=== PATIENT | female | born 1960 | race Caucasian/White ===

== ENCOUNTER → 2020-10-28 11:05 | Outpatient (BNVA) | payer OTHER, SELFPAY | PROVIDERS: PCP Family Medicine; Visit Provider Internal Medicine | DX: R76.8 Other specified abnormal immunological findings in serum (principal); R79.89 Other specified abnormal findings of blood chemistry; M25.50 Pain in unspecified joint; E87.6 Hypokalemia; Z79.899 Other long term (current) drug therapy; F17.210 Nicotine dependence, cigarettes, uncomplicated | CPT/HCPCS: 99204 ==

== ENCOUNTER 2020-10-28 12:00 | Outpatient (CLI) | payer OTHER, SELFPAY ==
--- NOTE | 2020-10-28 12:08 | XR_ITS ---
WS: [id number] LEFT HAND: 2 VIEW(S) TECHNIQUE: PA and lateral. HISTORY: E87.6 - Hypokalemia COMPARISON: None available. No acute fracture or dislocation. Mild diffuse interphalangeal joint space narrowing. Mild degenerative changes at the first CMC joint. XR/XR hand LT 2V 13367 IMPRESSION: Mild osteoarthritis.
--- NOTE | 2020-10-28 12:08 | XR_ITS ---
WS: [id number] Exam: XR hand RT 2V [id number] Date/Time of Exam: 10/28/2020 12:25 PM Reason For Exam: E87.6 - Hypokalemia No fracture or dislocation. There are moderate changes of osteoarthritis in the DIP joints as well as the second MP joint. Degenerative change at the CMC joint of the thumb. Normal soft tissues. XR/XR hand RT 2V [id number] IMPRESSION: 1. Degenerative changes of the hand as noted above. Changes are most prevalent in the DIP joints. 2. No fracture.
[2020-10-28 12:59] LABS: Basophils # 0.1 10^3/uL (0.0-0.1); Basophils % 1.1 %; Eosinophils # 0.1 10^3/uL (0.0-0.8); Eosinophils % 1.5 %; Hematocrit 44.2 % (37.0-47.0); Hemoglobin 14.3 g/dL (11.5-15.3); Lymphocytes # 1.5 10^3/uL (0.8-4.8); Lymphocytes % 22.8 %; Mean Corpuscular HGB Conc 32.4 g/dL (30.0-36.0); Mean Corpuscular Hemoglobin 29.2 pg (28.0-34.0); Mean Corpuscular Volume 90.2 fL (81-99); Mean Platelet Volume 9.2 fL (7.4-10.4); Monocytes # 0.6 10^3/uL (0.2-0.9); Monocytes % 8.8 %; Neutrophils # 4.24 10^3/uL (1.8-7.7); Neutrophils % 65.5 %; Nucleated Red Blood Cells % 0 %; Platelet Count 309 10^3/cmm (130-400); Red Cell Distribution Width 14.3 % (12.1-15.1); White Blood Count 6.5 10^3/uL (4.0-10.0)
[2020-10-28 13:37] LABS: Alanine Aminotransferase 57 U/L (0-33); Albumin Level 4.4 g/dL (3.5-5.2); Alkaline Phosphatase 156 IU/L (35-105); Aspartate Amino Transferase 29 U/L (0-32); Blood Urea Nitrogen 11 mg/dL (8-23); Calcium 9.3 mg/dL (8.5-10.5); Carbon Dioxide 27 mmol/L (22-29); Chloride 101 mmol/L (98-107); Creatine Phosphokinase 87 U/L (26-192); Free T4 Free Thyroxine 1.42 ng/dL (0.82-1.77); Globulin 2.5 g/dL (1.3-4.6); Glomerular Filtration Rate 101.3 mL/min (90-130); Glucose 99 mg/dL (65-115); Magnesium 2.1 mg/dL (1.7-2.3); Osmolality Calculated 285 mOsm/kg (285-295); Sodium 138 mmol/L (136-145); T3 Free 4.6 PG/ML (2.0-4.4); Thyroid Stimulating Hormone 0.93 uIU/mL (0.27-4.20); Total Bilirubin 0.3 mg/dL (0.15-1.2); Total Protein 6.9 g/dL (6.6-8.7)
[2020-10-28 13:54] LABS: Ferritin 131 ng/mL (15-150)
[2020-10-28 13:55] LABS: Hepatitis B Core AB, Total Non-Reactive (Nonreactive); Hepatitis B Surface Antigen Non-Reactive (Nonreactive); Hepatitis C Virus Antibody Non-Reactive (Nonreactive)
[2020-10-28 13:58] LABS: Erythrocyte Sedimentation Rate 27 mm/hr (0-15)
[2020-10-28 14:10] LABS: 25 Hydroxy Vitamin D 50 ng/mL (30-100); Vitamin B12 441 pg/mL (232-1245)
[2020-10-29 13:08] LABS: COMPLEMENT COMPONENT C3C 205 mg/dL (83-193); COMPLEMENT COMPONENT C4C 47 mg/dL (15-57)
[2020-10-31 13:57] LABS: Quantiferon Mitogen 9.43 IU/mL; Quantiferon Nil 0.03 IU/mL; Quantiferon TB Gold NEGATIVE (NEGATIVE)
[2020-11-01 12:22] LABS: THYROID PEROXIDASE ANTIBODIES 1 IU/mL (<9)
[2020-11-01 12:56] LABS: Cyclic Citrullinated Peptide >250 UNITS
[2020-11-01 16:17] LABS: COMPLEMENT, TOTAL (CH50) >60 U/mL (31-60)
[2020-11-02 09:59] LABS: CENTROMERE B ANTIBODY <1.0 NEG AI (<1.0 NEG); JO-1 ANTIBODY <1.0 NEG AI (<1.0 NEG); RNP ANTIBODY <1.0 NEG AI (<1.0 NEG); SCL-70 ANTIBODY <1.0 NEG AI (<1.0 NEG); SJOGREN'S ANTIBODY (SS-A) <1.0 NEG AI (<1.0 NEG); SM ANTIBODY <1.0 NEG AI (<1.0 NEG); SS-B <1.0 NEG AI (<1.0 NEG)
[2020-11-02 14:22] LABS: ANA PATTERN Nuclear, Speckled; ANA SCREEN, IFA POSITIVE (NEGATIVE); ANA TITER 1:40 titer
[2020-11-03 02:02] LABS: Tissue Transglutaminase IgA Ab <1 U/mL; Tissue transglutaminase Ab.IgG 8 U/mL
[2020-11-04 01:54] LABS: Immunoglobulin A 219 mg/dL (70-320)
[2020-11-04 08:02] LABS: DNA AB (DS) CRITHIDIA,IFA NEGATIVE (NEGATIVE)
[2020-11-06 16:58] LABS: Gliadin Ab.IgA 7 U (<20); Gliadin Ab.IgG <1 U (<20)
== END 2020-10-28 12:01 | disposition home or self-care (01) ==
PROVIDERS: PCP Family Medicine; Visit Provider Internal Medicine
DX: E87.6 Hypokalemia (principal); R76.8 Other specified abnormal immunological findings in serum; R79.89 Other specified abnormal findings of blood chemistry; Z79.899 Other long term (current) drug therapy; D86.9 Sarcoidosis, unspecified; M32.9 Systemic lupus erythematosus, unspecified; Z51.81 Encounter for therapeutic drug level monitoring; Z11.59 Encounter for screening for other viral diseases; Z11.1 Encounter for screening for respiratory tuberculosis
CPT/HCPCS: 36415; 73120; 80053; 82306; 82550; 82607; 82728; 82784; 83516; 83735; 84439; 84443; 84481; 85025; 85651; 86160; 86162; 86235; 86255; 86376; 86480; 86704; 86803; 87340